=== PATIENT | female | born 1985 | race Two or more races ===

== ENCOUNTER 2025-05-18 09:39 | Outpatient (CLI) | payer OTHER | END 2025-05-18 09:42 | disposition home or self-care (01) | LOC: SONOGRAMA 09:39 | PROVIDERS: ATTEND Pathology Anatomic Pathology & Clinical Pathology | DX: D24.1 Benign neoplasm of right breast (principal); N63.10 Unspecified lump in the right breast, unspecified quadrant; N60.21 Fibroadenosis of right breast ==